=== PATIENT | female | born 1940 | race Caucasian/White ===

== ENCOUNTER 2016-11-17 12:32 | Observation (INO) | payer MEDICARE ==
--- NOTE | 2016-11-17 12:43 | ER Document Report ---
ED Fall - General Time seen by provider: 12:30 Mode of Arrival: Medic Information source: Patient - HPI Occurred: Other - see HPI note <MARGARITA ARREDONDO - Last Filed: 11/17/16 15:56> <YASH TABARES - Last Filed: 11/18/16 05:36> - General Chief Complaint: Fall Injury Stated Complaint: FALL,SHOULDER INJURY Notes: Patient is a 76 year old female presenting to the ED for fall. Patient was in her attic when she slipped and fell down to the top of the stairs and then fell down the rest of the stairs. Patient complains of left shoulder pain, hematoma above her left eye, and pain in her left ribs. Patient also had some nausea and dizziness at the time of that fall. Patient did not lose consciousness. Patient has pain with breathing. Patient has history rheumatoid arthritis and has had a cholecystectomy. Patient states she takes medicine for cholesterol as well. Patient has no known allergies. (MARGARITA ARREDONDO) - Related data Allergies/Adverse Reactions: No Known Allergies Allergy (Unverified 11/17/16 13:03) Home Medications: Current Home Medications Unobtainable [Unobtainable] 11/17/16 [History] Past Medical History - General Information source: Patient - Social History Smoking Status: Unknown if Ever Smoked Family History: None Patient has suicidal ideation: No Patient has homicidal ideation: No - Past Medical History Cardiac Medical History: Reports: Hx Hypercholesterolemia Musculoskeltal Medical History: Reports Hx Arthritis - RA Past Surgical History: Reports: Hx Cholecystectomy <MARGARITA ARREDONDO - Last Filed: 11/17/16 15:56> Review of Systems - Review of Systems Constitutional: No symptoms reported EENT: No symptoms reported Cardiovascular: No symptoms reported Respiratory: No symptoms reported Gastrointestinal: No symptoms reported Genitourinary: No symptoms reported Female Genitourinary: No symptoms reported Musculoskeletal: See HPI Skin: See HPI Hematologic/Lymphatic: No symptoms reported Neurological/Psychological: No symptoms reported -: Yes All other systems reviewed and negative <MARGARITA ARREDONDO - Last Filed: 11/17/16 15:56> Physical Exam - Vital signs Interpretation: Hypertensive - General General appearance: Appears well, Alert In distress: Mild - HEENT Head: Normocephalic, Other - Hematoma to the left forehead with a 1 cm laceration, no active bleeding Eyes: Normal Pupils: PERRL Mucous membranes: Moist - Respiratory Respiratory status: No respiratory distress Chest status: Nontender Breath sounds: Decreased air movement - Left side Chest palpation: Normal - Cardiovascular Rhythm: Regular Heart sounds: Normal auscultation Murmur: No - Abdominal Inspection: Normal Distension: No distension Bowel sounds: Normal Tenderness: Nontender Organomegaly: No organomegaly - Back Back: Normal, Nontender - Extremities General upper extremity: Other - Pain without deformity to the left shoulder, humerus, and elbow; good radial and femoral pulses; right forearm is wrapped with gauze. General lower extremity: Normal inspection, Normal ROM, Normal strength - Neurological Neuro grossly intact: Yes Cognition: Normal Orientation: AAOx4 Martin Coma Scale Eye Opening: Spontaneous Judd Coma Scale Verbal: Oriented Martin Coma Scale Motor: Obeys Commands Judd Coma Scale Total: 15 Speech: Normal Sensory: Normal - Psychological Associated symptoms: Normal affect, Normal mood - Skin Skin Temperature: Warm Skin Moisture: Dry <MARGARITA ARREDONDO - Last Filed: 11/17/16 15:56> <YASH TABARES - Last Filed: 11/18/16 05:36> - Vital signs Vitals: Temp Pulse Resp BP Pulse Ox 97.9 F 63 16 194/77 H 100 11/17/16 12:38 11/17/16 12:38 11/17/16 12:38 11/17/16 12:38 11/17/16 12:38 Temp Pulse Resp BP Pulse Ox 97.9 F 63 16 194/77 H 100 11/17/16 12:38 11/17/16 12:38 11/17/16 12:38 11/17/16 12:38 11/17/16 12:38 (MARGARITA ARREDONDO) Course - Laboratory Result Diagrams: 11/17/16 12:35 11/17/16 12:35 - Consults Dr. Mederos Time consulted: 14:00 <MARGARITA ARREDONDO - Last Filed: 11/17/16 15:56> - Laboratory Result Diagrams: 11/17/16 12:35 11/18/16 04:10 <YASH TABARES - Last Filed: 11/18/16 05:36> - Re-evaluation Re-evalutation: 11/17/16 12:58 History presents emergency department as a level II trauma she was up in her attic at her home [place] and fell down a flight of stairs to the landing and then a second flight of stairs down to the first floor. No loss consciousness tried to get up and walk felt lightheaded and dizzy on EMS arrival her blood pressure was stable she is awake and alert on ED arrival she is full C-spine backboard immobilization. She is awake alert with a GCS of 15 and following commands after 50 of fentanyl. She has a 1 cm abrasion to the left anterior forehead with bleeding well controlled associated hematoma no step-off or deformity extraocular muscles are intact no hemotympanums midface is stable teeth are intact trachea is midline no intraoral lesions. C-collar is in place she has pain with palpation left anterior chest wall no obvious swelling deformity crepitus necrosis or trauma. Admitted soft no tenderness guarding rebound rigidity pelvis is stable no lower extremity edema tenderness or deformity. On logroll examination she has no midline thoracic lumbosacral tenderness. Normal neurological examination. Once he department management acute bedside chest x-ray x-ray of the pelvis and x-ray left upper extremity no obvious pneumothorax widening of the mediastinum no obvious fracture or deformity. Patient is cannot undergo CT of the head neck face chest abdomen pelvis thorax and lumbar spine. 11/17/16 14:[address] of the head neck face chest abdomen pelvis thoracic and lumbar spine reviewed she has only a left rib fracture a left nondisplaced clavicle fracture. She is very healthy by nature takes Humira only for arthritis I contacted the surgical physician on-call I want to admit her to the hospital at least for observation given the fact that she's elderly fell 20 feet has a left- sided rib fracture particularly concerns for elderly rib fracture and development of pulmonary contusion and ARDS. Right now the patient has no respiratory distress is satting well is hemodynamically stable controlling her pain of left rib and clavicle with pain medication IV. Patient is going to be admitted to the hospital under the surgical list in stable condition. 11/18/16 05:35 (YASH TABARES) - Vital Signs Vital signs: Temp Pulse Resp BP Pulse Ox 98.5 F 79 21 H 120/59 L 97 11/18/16 00:24 11/18/16 00:24 11/18/16 00:24 11/18/16 00:24 11/18/16 00:24 - Laboratory Laboratory results interpreted by me: 11/17/16 11/17/16 12:35 12:35 WBC 11.9 H RBC 3.55 L Hct 34.5 L MCH 33.8 H BUN 31 H Est GFR ( Amer) 58 L Est GFR (Non-Af Amer) 48 L Glucose 111 H - Consults Dr. Mederos Reason for consultation: 11/17/16 14:[address] Mederos who will admit the patient for observation. (MARGARITA ARREDONDO) Critical Care Note - Critical Care Note Total time excluding time spent on procedures (mins): 60 <YASH TABARES - Last Filed: 11/18/16 05:36> Discharge <MARGARITA ARREDONDO - Last Filed: 11/17/16 15:56> - Discharge Admitting Provider: Surgicalist Unit Admitted: Surgical Floor <YASH TABARES - Last Filed: 11/18/16 05:36> - Discharge Clinical Impression: fall 20 feet, left clavicle fracture, left third rib fracture, abrasion to the left forehead Condition: Stable Disposition: ADMITTED INPATIENT Scribe Attestation: 11/17/16 14:32 I personally performed the services described in the documentation reviewed the documentation recorded by my scribe in my presence and it accurately and completely records my words and actions (YASH TABARES) Scribe Documentation - Scribe Written by Scribrenee:: Margarita Arredondo 11/17/16 15:30 acting as scribe for :: Derik <MARGARITA ARREDONDO - Last Filed: 11/17/16 15:56>
[2016-11-17] MEDS ORDERED: TETANUS/DIPHTHERIA TOX-ADULT 0.5 ML SYR (>=7YO) IM ONE (13:02)
[2016-11-17 13:12] LABS: ANION GAP 14 (5-19); BLOOD UREA NITROGEN 31 mg/dL (7-20); CALCIUM 9.1 mg/dL (8.4-10.2); CARBON DIOXIDE 24 mmol/L (22-30); CHLORIDE 106 mmol/L (98-107); CREATININE RESULT 1.11 mg/dL (0.52-1.25); GLUCOSE 111 mg/dL (75-110); POTASSIUM 4.6 mmol/L (3.6-5.0); SODIUM 143.7 mmol/L (137-145)
[2016-11-17 13:35] LABS: ABSOLUTE EOSINOPHILS # (AUTO) 0.5 10^3/uL (0.0-0.6); ABSOLUTE LYMPHOCYTES (AUTO) 3.4 10^3/uL (0.5-4.7); ABSOLUTE MONOCYTES (AUTO) 0.9 10^3/uL (0.1-1.4); BASOPHILS % (AUTO) 0.3 % (0-2); EOSINOPHILS % (AUTO) 4.5 % (0-6); HEMATOCRIT 34.5 % (36.0-47.0); HGB HCT DIFFERENCE 1.5; LYMPHOCYTES % (AUTO) 28.9 % (13-45); MEAN CORPUSCULAR HEMOGLOBIN 33.8 pg (27.0-33.4); MEAN CORPUSCULAR HGB CONC 34.8 g/dL (32.0-36.0); MEAN CORPUSCULAR VOLUME 97 fl (80-97); MONOCYTES % (AUTO) 7.8 % (3-13); RED CELL DISTRIBUTION WIDTH 13.1 % (11.5-14.0); SEGMENTED NEUTROPHILS % (AUTO) 58.5 % (42-78); WHITE BLOOD COUNT 11.9 10^3/uL (4.0-10.5)
[2016-11-17 13:36] LABS: RED BLOOD COUNT 3.55 10^6/uL (3.72-5.28)
[2016-11-17] MEDS ORDERED: FENTANYL CITRATE INJ/PF 100 MCG/2 ML AMPUL IV ONE (14:33)
[2016-11-17] MEDS ORDERED: 1/2 NORMAL SALINE 500 ML IV PRN (14:50)
[2016-11-17] MEDS ORDERED: HYDROCODONE/ACETAMINOPHEN 5-325 MG TABLET PO PRN (15:09)
[2016-11-17] MEDS ORDERED: HYDROMORPHONE HCL INJ/PF 2 MG/ML AMPULE IV PRN (15:09)
[2016-11-17] MEDS ORDERED: DOCUSATE SODIUM 100 MG CAPSULE PO SCH (18:00)
[2016-11-17] MEDS ORDERED: 1/2 NORMAL SALINE 1,000 ML IV PRN (19:18)
[2016-11-18 04:59] LABS: ANION GAP 13 (5-19); BLOOD UREA NITROGEN 21 mg/dL (7-20); CALCIUM 8.7 mg/dL (8.4-10.2); CARBON DIOXIDE 22 mmol/L (22-30); CHLORIDE 106 mmol/L (98-107); CREATININE RESULT 0.85 mg/dL (0.52-1.25); GLUCOSE 84 mg/dL (75-110); POTASSIUM 4.2 mmol/L (3.6-5.0); SODIUM 141.4 mmol/L (137-145)
[2016-11-18 05:35] LABS: ABSOLUTE EOSINOPHILS # (AUTO) 0.2 10^3/uL (0.0-0.6)
[2016-11-18 06:01] LABS: ABSOLUTE LYMPHOCYTES (AUTO) 2.8 10^3/uL (0.5-4.7); ABSOLUTE MONOCYTES (AUTO) 0.8 10^3/uL (0.1-1.4); BASOPHILS % (AUTO) 0.3 % (0-2); EOSINOPHILS % (AUTO) 2.7 % (0-6); HEMATOCRIT 32.5 % (36.0-47.0); HEMOGLOBIN 11.8 g/dL (12.0-15.5); HGB HCT DIFFERENCE 2.9; LYMPHOCYTES % (AUTO) 35.4 % (13-45); MONOCYTES % (AUTO) 10.6 % (3-13); RED CELL DISTRIBUTION WIDTH 13.2 % (11.5-14.0); WHITE BLOOD COUNT 7.9 10^3/uL (4.0-10.5)
[2016-11-18 06:03] LABS: MEAN CORPUSCULAR HEMOGLOBIN 36.2 pg (27.0-33.4); MEAN CORPUSCULAR VOLUME 100 fl (80-97); RED BLOOD COUNT 3.25 10^6/uL (3.72-5.28)
[2016-11-18 06:04] LABS: MEAN CORPUSCULAR HGB CONC 36.2 g/dL (32.0-36.0)
--- NOTE | 2016-11-18 06:38 | PDOC PROGRESS REPORT ---
Subjective Progress Note for:: 11/18/16 Subjective:: Pain less no sob Physical Exam Vital Signs: Temp Pulse Resp BP Pulse Ox 98.5 F 79 21 H 120/59 L 97 11/18/16 00:24 11/18/16 00:24 11/18/16 00:24 11/18/16 00:24 11/18/16 00:24 Respiratory exam: PRESENT: other - both lungs good air entry GI/Abdominal exam: PRESENT: soft - soft, nontender Results Laboratory Results: 11/18/16 04:10 11/18/16 04:10 11/18/16 11/18/16 04:10 04:10 WBC 7.9 RBC 3.25 L Hgb 11.8 L Hct 32.5 L MCV 100 H MCH 36.2 H MCHC 36.2 H RDW 13.2 Plt Count 205 Seg Neutrophils % 51.0 Lymphocytes % 35.4 Monocytes % 10.6 Eosinophils % 2.7 Basophils % 0.3 Absolute Neutrophils 4.0 Absolute Lymphocytes 2.8 Absolute Monocytes 0.8 Absolute Eosinophils 0.2 Absolute Basophils 0.0 Sodium 141.4 Potassium 4.2 Chloride 106 Carbon Dioxide 22 Anion Gap 13 BUN 21 H Creatinine 0.85 Est GFR ( Amer) > 60 Est GFR (Non-Af Amer) > 60 Glucose 84 Calcium 8.7 Impressions: Chest X-Ray 11/17/16 00:00 IMPRESSION: NO ACUTE RADIOGRAPHIC FINDING IN THE CHEST. Humerus X-Ray 11/17/16 00:00 IMPRESSION: NEGATIVE STUDY OF THE LEFT HUMERUS. NO RADIOGRAPHIC EVIDENCE OF ACUTE INJURY. Pelvis X-Ray 11/17/16 00:00 IMPRESSION: NEGATIVE STUDY OF THE PELVIS. Cervical Spine CT 11/17/16 12:56 IMPRESSION: CHRONIC DEGENERATIVE CHANGES. NO ACUTE FINDINGS. Facial Bones CT 11/17/16 12:56 IMPRESSION: NO ACUTE FINDINGS. Head CT 11/17/16 12:56 IMPRESSION: NORMAL BRAIN CT WITHOUT CONTRAST. Abdomen/Pelvis CT 11/17/16 12:57 IMPRESSION: No acute abnormality in the abdomen or pelvis. Chest CT 11/17/16 12:57 IMPRESSION: Fractures left 3rd rib and left clavicle. Assessment & Plan - Plan Summary Plan Summary: Fall with left rib fractures stable clavicular fractures Pain managemen Posasible dc AM
--- NOTE | 2016-11-18 09:08 | DISCHARGE SUMMARY E ---
Discharge Summary NAME: JOSÉ LEARY : 1940 AGE: 76Y ADMITTED: 11/17/2016 DISCHARGED: 11/18/2016 REASON FOR ADMISSION: Fall from attic. SUMMARY OF HOSPITALIZATION: Patient is a 76-year-old white female who was in her attic and slipped down the steps, injuring her left shoulder and left scalp. She was seen in the emergency department where she was evaluated and found to be hemodynamically stable and neurologically intact. She underwent extensive imaging including multiple x-rays of the chest, humerus, pelvis, as well as CT scan of the head, C-spine, abdomen, pelvis, chest. The entire workup revealed a left clavicle fracture, comminuted. Patient was admitted overnight for observation. She had excellent pain control. The following morning she was seen by the orthopedic service. She was fitted with a left arm sling. Recommendations were made for nonoperative management. She was tolerating a diet. By the following morning, she was felt to have received maximum benefit from hospitalization and was discharged home. FINAL DIAGNOSIS: Left clavicle fracture, status post fall in a 76-year-old female. PLAN: Patient was discharged home in care of family. Take Tylenol or Motrin p.r.n. pain and a stool softener. She will follow up with the orthopedic team as previously discussed with Orthopedics. She can follow up with General Surgery on an as needed basis. DICTATING PHYSICIAN: KEYSHA MCKINLEY M.D. [id number] PHY#: [id number] ID: [id number] JOB#: [id number] ACCT: [id number] cc:KEYSHA MCKINLEY M.D., E. R. >
[2016-11-18 11:19] VITALS: BP 131/68
--- NOTE | 2016-11-18 13:54 | HISTORY AND PHYSICAL E ---
History and Physical NAME: JOSÉ LEARY : 1940 AGE: 76Y ADMITTED: 11/17/2016 ROOM: [facility] HISTORY OF PRESENT ILLNESS: The patient is a 76-year-old female patient brought to the Emergency Room by ambulance after a fall of about 15-20 feet. Fell on the side of the steps, slid down the steps, while she was working in an attic. Then she fell and started having some pain in the left upper chest area and sustained a small laceration to her head on the forehead. She clearly denies any history of loss of consciousness, and she denies any headache. After having come to the Emergency Room, she again reports no shortness of breath, no abdominal pain. Just mild pain on deep breathing on the left side. She underwent extensive workup in the Emergency Room, including CT scan of abdomen and pelvis, and then CT scan of the head and the C spine. X-ray of the pelvis and x-ray of the chest were all done. Everything was negative except for the chest x-ray and CT, which revealed basically fracture of the third rib and left clavicle. At this point, no signs of any pulmonary contusion. No hemothorax, pneumothorax . No other injuries were seen. The patient is being admitted for the pain management, also for potential development of pulmonary contusion, and also to observe more closely for pulmonary and just in case any neurological status changes. The patient is being admitted to the hospital for observation. At this point, she left upper chest area but no shortness of breath. No changes in ability to concentrate, focus, or talk. No abdominal pain. She denies any abdominal pain. PAST MEDICAL HISTORY: Mild hypertension. No other major medical problems. SURGICAL HISTORY: No major abdominal surgeries in the past. REVIEW OF SYSTEMS: As per examination. PHYSICAL EXAMINATION: GENERAL: She is awake, alert, and oriented. Her Von Ormy Coma Scale is 15 out of 15. HEAD AND NECK: Normocephaly. Slight ecchymosis and abrasion on the left side forehead, but no hematoma. No skull fracture. No deformity in the skull bones. Examination of the neck otherwise, soft tissues. No bruits. No thyromegaly. No masses. VITAL SIGNS: blood pressure 170/90. Heart is around 68-70. Respirations around 14. Saturating around 98%. MUSCULOSKELETAL: C-spine: No C-spine deformities. No tenderness in the C-spine. Thoracic spine: No deformities and no tenderness. Lumbar area: No deformities. No tenderness. CHEST/RESPIRATORY: Both lungs clear to auscultation. Bilaterally good air entry. Mild tenderness in the left upper chest. ABDOMEN: No distention abdomen nontender. PELVIC: No tenderness in the pelvic bones. EXTREMITIES: Warm and well perfused. The knee and the hip joints examined and her mobility is completely normal. DIAGNOSTIC STUDIES: I reviewed her CT scan of the head, C spine area, chest, and abdomen. Basically no injuries except for left clavicular and third rib fracture. No other injuries. IMPRESSION AND PLAN: Overall, the patient had a fall, localized injury to the left third rib area fracture and clavicle but nondisplaced. No pneumothorax. Plan is to admit her for observation, pain management, incentive spirometry. Repeat x-rays in the morning. DICTATING PHYSICIAN: HOUSTON TEJEDA M.D. [id number] PHY#: [id number] ID: [id number] JOB#: [id number] ACCT: [id number] cc: >
== END 2016-11-18 12:30 | disposition home or self-care (01) ==
LOC: ER 12:32 → UNDOADMIN 14:38 → EH 14:38 → 4N 17:02 → EH 17:02 → 4N 23:55 → INTOOBSV 23:55 → EH 23:55
PROVIDERS: ATTEND Surgery
PROC: 3E0234Z Introduction of Serum, Toxoid and Vaccine into Muscle, Percutaneous Approach (ICD-10-PCS; principal; 2016-11-17)
DX: S42.032A Displaced fracture of lateral end of left clavicle, initial encounter for closed fracture (principal); S22.32XA Fracture of one rib, left side, initial encounter for closed fracture; W10.8XXA Fall (on) (from) other stairs and steps, initial encounter; R11.0 Nausea; R42 Dizziness and giddiness; S01.81XA Laceration without foreign body of other part of head, initial encounter; H57.8 Other specified disorders of eye and adnexa; Z90.49 Acquired absence of other specified parts of digestive tract; M06.9 Rheumatoid arthritis, unspecified; Z23 Encounter for immunization; Z79.899 Other long term (current) drug therapy
CPT/HCPCS: 99291; 90471; 36415 ×2; 85025 ×2; 80048 ×2; 71020; 71010; 73000; 73060; 72170; 70450; 70486; 71260; 72125; 74177; 90714; 94799; G0378; J3010